=== PATIENT | female | born 1940 | race Caucasian/White ===

== ENCOUNTER 2023-12-09 12:24 | Emergency (ER) | payer OTHER, MEDICARE, SELFPAY ==
[2023-12-09 12:45] VITALS: BP 130/84; PULSE 64
[2023-12-09 12:46] VITALS: BP 163/96; PULSE 62; RESP 16; TEMP 36.4; O2SAT 95
--- NOTE | 2023-12-09 13:54 | ED.GENADULT ---
HPI - General Adult General Chief complaint: General Medical Stated complaint: PROLAPSED RECTUM Time Seen by Provider: 12/09/23 12:45 Source: patient and other Mode of arrival: EMS History of Present Illness HPI narrative: 83-year-old female with history of prior rectal prolapse presents today via EMS with another occurrence and had associated bleeding, since last night, patient has refused surgery in the past for the prolapse, denies any abdominal pain/nausea/vomiting but does suffer from constipation. Review of Systems Review of Systems: Pertinent positives and negatives as stated in HPI PMFSH Past Medical History Source: nursing notes reviewed Social History Social History Smoked in Last 30 Days: No Advance Directives: Yes Advance Directives Information Provided: Yes Advance Directives on File: No Physical Exam ED Vital Signs: Vital Signs - 24 hr 12/09/23 12:46 12/09/23 14:13 Temperature 97.5 F Pulse Rate 62 66 Respiratory Rate 16 16 Blood Pressure 163/96 H 127/86 Pulse Oximetry 95 97 Oxygen Delivery Method Room Air Room Air BMI result Body Mass Index 20.0 VITAL SIGNS: Reviewed. GENERAL: Well developed, well nourished, in no acute distress. HEAD: Normocephalic/atraumatic EYES: PERRLA, EOMI LUNGS: Normal breath sounds. No adventitious sounds or accessory muscle use. SpO2<97> CARDIOVASCULAR: Regular rate and rhythm without noted murmurs ABDOMEN: Soft, non-tender, non-distended with bowel sounds. ANORECTAL: Prolapsed rectum approximately 4.5 cm, no obvious lesions noted no gross bleeding MUSCULOSKELETAL: No tenderness, deformities, or effusions noted on gross inspection. EXTREMITIES: No cyanosis, clubbing or edema. SKIN: Inspection of the skin reveals no rashes NEUROLOGIC: Alert and oriented x 4. Strength and sensation to light touch were grossly intact x 4. Medical Decision Making Medical Decision Making MDM Narrative: 83-year-old female with acute on chronic rectal prolapse without associated abdominal discomfort or symptoms, no significant bleeding, rectal prolapse was successfully reduced with gentle pressure, digital exam after reduction demonstrates successful reduction, I did discuss the prolapse briefly with general surgeon on-call, Dr. Carreon who agrees with outpatient follow-up given absence of abdominal pain and agrees with instructions to avoid constipation. I will provide the patient with follow-up with Dr. Jama. Differential Diagnosis Differential Diagnoses: The differential diagnosis associated with the presentation includes Please see the discussion above Admission/Observation Consideration of admission/observation: Escalation of care including admission/observation considered Please see the discussion above Critical Care Time Critical Care Time Critical Care Time: Yes Total Critical Care Time: 30 Attestation: I personally attest to this time spent taking care of the patient. Discharge Plan Discharge Clinical Impression: Rectal prolapse Patient Disposition: Xfer Other Instructions: Rectal Prolapse (ED) Additional Instructions: 1. Resume all home medications as prescribed. 2. Patient needs a more aggressive regimen to avoid constipation, recommend MiraLax at least daily and if already on this medication consider twice daily. 3. Please follow-up with the general surgeon below to further discuss your recurrent rectal prolapse. 4. Follow-up with your primary care doctor in the next 1-2 days. Return to the ER for any worsening symptoms. Referrals: Ganesh Jama MD [Physician] -
[2023-12-09 14:13] VITALS: BP 127/86; PULSE 66; RESP 16; O2SAT 97
--- NOTE | 2023-12-09 14:21 | PC.NURSE ---
Patient back in street clothes, resting quietly on stretcher, VS stable, waiting for ambulance to go back to facility
[2023-12-09 15:46] VITALS: BP 127/86; PULSE 66; RESP 16; TEMP 36.4; O2SAT 98
== END 2023-12-09 15:47 | disposition other institution (70) ==
PROVIDERS: Emergency Provider Student in an Organized Health Care Education/Training Program
DX: K62.3 Rectal prolapse (principal)
CPT/HCPCS: 99284